=== PATIENT | male | born 1965 | race Caucasian/White ===

== ENCOUNTER 2017-07-15 11:10 | Day surgery (SDC) | payer BC ==
[2017-07-15 12:08] VITALS: BMI 26.6
[2017-07-15 12:33] VITALS: O2SAT 100
[2017-07-15] MEDS ORDERED: Lactated Ringer's 1,000 ML IV ONE ×2 (12:35)
[2017-07-15] MEDS ORDERED: Midazolam 2 MG/2 ML VIAL ONE (12:35)
[2017-07-15] MEDS ORDERED: Propofol 10 mg/ml Inj (20 ML) ONE (12:35)
[2017-07-15] MEDS ORDERED: Lactated Ringer's 500 ML IV ONE (13:20)
[2017-07-15 13:51] VITALS: TEMP 97.1
[2017-07-15 14:36] VITALS: BP 113/68; PULSE 60; RESP 14
== END 2017-07-15 14:35 | disposition home or self-care (01) ==
LOC: C.ENDO 11:10
PROVIDERS: ATTEND Internal Medicine
DX: R19.4 Change in bowel habit (principal); K62.89 Other specified diseases of anus and rectum; K63.5 Polyp of colon; K64.8 Other hemorrhoids; R14.0 Abdominal distension (gaseous); K22.10 Ulcer of esophagus without bleeding; K44.9 Diaphragmatic hernia without obstruction or gangrene; K29.70 Gastritis, unspecified, without bleeding; K31.89 Other diseases of stomach and duodenum
CPT/HCPCS: 43239; 45380; 88305; J2250; J2704; J3010; J7120